=== PATIENT | male | born 1955 | race Caucasian/White ===

== ENCOUNTER 2017-09-14 19:01 | Emergency (ER) | payer MEDICAID ==
[~2017-09-14] VITALS: Ht 185.4 cm; Wt 102.3 kg
[2017-09-14 19:06] VITALS: Ht 185.4 cm; Wt 102.3 kg
[2017-09-14] MEDS ORDERED: OMEPRAZOLE20 M1 PO (19:08)
[2017-09-14] MEDS ORDERED: VOLTAREN75 MG PO (21:18)
[2017-09-14 21:37] VITALS: BP 159/95
== END 2017-09-14 21:39 | disposition home or self-care (01) ==
LOC: D.ER 19:01
DX: S83.92XA Sprain of unspecified site of left knee, initial encounter (principal); W20.8XXA Other cause of strike by thrown, projected or falling object, initial encounter; Y93.89 Activity, other specified; Y92.89 Other specified places as the place of occurrence of the external cause

== ENCOUNTER 2019-12-25 17:23 | Emergency (ER) | payer MEDICAID ==
[~2019-12-25] VITALS: Ht 185.4 cm; Wt 106.8 kg
[~2019-12-25 17:23] MED LIST: OMEPRAZOLE20 M1 PO; VOLTAREN75 MG PO
[2019-12-25 17:44] VITALS: Ht 185.4 cm; Wt 106.8 kg
[2019-12-25] MEDS ORDERED: NOVOLOG100 UNIT/1 (17:50)
[2019-12-25 18:56] LABS: BASOPHILS 0.1 % (0-2); EOSINOPHILS 0 % (0-7); HEMOGLOBIN 16.4 g/dL (13.5-17.5); IMMATURE GRANULOCYTES 0.2 % (0-5); LYMPHOCYTES 10.5 % (15-50); MCH 31.4 pg (26.0-34.0); MCHC 34.9 g/dL (31.0-37.0); MEAN PLATELET VOLUME 11.6 fL (7.4-10.4); MONOCYTES 8.1 % (2-11); NEUTROPHILS 81.1 % (40-80); RBC 5.22 10x6/uL (4.20-6.10); RDW 12.8 % (11.5-14.5); WBC 11.4 10x3/uL (4.8-10.8)
[2019-12-25 19:01] LABS: PLATELET COUNT 181 10x3/uL (130-400)
[2019-12-25 19:31] LABS: CALC OSMOLALITY 284 mosm/kg (275-300); CALCIUM 9.1 mg/dL (8.5-10.1); CARBON DIOXIDE 24.5 mmol/L (21.0-32.0); CHLORIDE - SERUM 102 mmol/L (98-107); CREATININE - SERUM 0.9 mg/dL (0.6-1.3); POTASSIUM - SERUM 3.3 mmol/L (3.5-5.1); SODIUM 138 mmol/L (136-145); UREA NITROGEN 13 mg/dL (7-18); eGFR NON AFRICAN AMERICAN 90 mL/min (90-120)
[2019-12-25 19:34] LABS: GLUCOSE 261 mg/dL (74-106)
[2019-12-25 19:36] LABS: ALBUMIN 3.6 g/dL (3.4-5.0); ALKALINE PHOSPHATASE 88 U/L (30-120); ALT (SGPT) 28 U/L (10-68); AMYLASE - SERUM 18 U/L (25-115); BILIRUBIN - TOTAL 2.04 mg/dL (0.2-1.3); MAGNESIUM - SERUM 1.6 mg/dL (1.8-2.4); PROTEIN - SERUM 7.5 g/dL (6.4-8.2); TROPONIN-I 0.027 ng/mL (0.000-0.060)
[2019-12-25 19:38] LABS: LIPASE 34 U/L (73-393)
[2019-12-25 20:31] LABS: BILIRUBIN NEGATIVE (NEGATIVE); KETONE LARGE mg/dL (NEGATIVE); NITRITE NEGATIVE (NEGATIVE); UROBILINOGEN NORMAL mg/dL (< 2)
[2019-12-25] MEDS ORDERED: ZOFRAN4 MG PO (21:22)
[2019-12-25 21:59] VITALS: BP 120/54
== END 2019-12-25 22:18 | disposition home or self-care (01) ==
LOC: D.ER 17:23
PROVIDERS: Family Medicine
DX: R10.9 Unspecified abdominal pain (principal); R11.2 Nausea with vomiting, unspecified; R53.83 Other fatigue; R53.81 Other malaise; E11.9 Type 2 diabetes mellitus without complications

== ENCOUNTER 2020-01-01 07:12 | Inpatient (IN) | payer MEDICARE ==
[~2020-01-01] VITALS: Ht 185.4 cm; Wt 106.6 kg
[2020-01-01] VITALS (8 sets, daily range): BP systolic 117–181; BP diastolic 70–87; BMI 31.0
[~2020-01-01 07:12] MED LIST changes: +NOVOLOG100 UNIT/1; +ZOFRAN4 MG PO
--- NOTE | 2020-01-01 08:26 | NUR ---
URINE SAMPLE COLLECTED AND SENT TO THE LAB.
--- NOTE | 2020-01-01 08:37 | NUR ---
PT TO RADIOLOGY VIA STRETCHER WITH STUDIO MUSICIAN.
--- NOTE | 2020-01-01 08:49 | NUR ---
PT BACK TO ROOM FROM CT WITH FRINGE KNOTTER.
[2020-01-01 08:54] LABS: CALC OSMOLALITY 273 mosm/kg (275-300); CALCIUM 8.4 mg/dL (8.5-10.1); CARBON DIOXIDE 25.4 mmol/L (21.0-32.0); CHLORIDE - SERUM 91 mmol/L (98-107); GLUCOSE 294 mg/dL (74-106); POTASSIUM - SERUM 3.3 mmol/L (3.5-5.1); SODIUM 128 mmol/L (136-145); UREA NITROGEN 29 mg/dL (7-18); eGFR NON AFRICAN AMERICAN 79 mL/min (90-120)
[2020-01-01 08:55] LABS: BILIRUBIN 1+ (NEGATIVE); KETONE LARGE mg/dL (NEGATIVE); NITRITE NEGATIVE (NEGATIVE); UROBILINOGEN 8 mg/dL (< 2)
[2020-01-01 08:56] LABS: BACTERIA FEW HPF (NONE SEEN); EPITHELIAL CELLS OCC /hpf (0-5); GRANULAR CAST RARE LPF (NONE SEEN); WHITE CELLS - URINE OCC HPF (0-1)
[2020-01-01 09:00] LABS: APTT 29.2 SECONDS (22.8-39.4); INR 1.24 (0.85-1.17); PROTIME 15.5 SECONDS (11.6-15.0)
[2020-01-01 09:01] LABS: HEMATOCRIT 43.9 % (42.0-54.0); HEMOGLOBIN 15.6 g/dL (13.5-17.5); MCH 30.6 pg (26.0-34.0); MCHC 35.5 g/dL (31.0-37.0); MCV 86.2 fL (80.0-100.0); MEAN PLATELET VOLUME 10.5 fL (7.4-10.4); PLATELET COUNT 241 10x3/uL (130-400); RBC 5.09 10x6/uL (4.20-6.10); RDW 13.2 % (11.5-14.5); WBC 25.1 10x3/uL (4.8-10.8)
[2020-01-01 09:08] LABS: ALBUMIN 1.9 g/dL (3.4-5.0); ALKALINE PHOSPHATASE 119 U/L (30-120); ALT (SGPT) 22 U/L (10-68); BILIRUBIN - TOTAL 5.08 mg/dL (0.2-1.3); CKMB 1.7 U/L (0.0-3.6); CREATINE KINASE 172 UL (21-232); MAGNESIUM - SERUM 2.6 mg/dL (1.8-2.4); PROTEIN - SERUM 6.7 g/dL (6.4-8.2); TROPONIN-I < 0.017 ng/mL (0.000-0.060)
[2020-01-01 10:39] LABS: LYMPHOCYTES 5 % (15-50); MONOCYTES 13 % (2-11); NEUTROPHILS 79 % (40-80); PLATELET ESTIMATE NORMAL
[2020-01-01 13:08] LABS: CKMB 1.5 U/L (0.0-3.6); CREATINE KINASE 129 UL (21-232); TROPONIN-I < 0.017 ng/mL (0.000-0.060)
--- NOTE | 2020-01-01 19:17 | NUR ---
PATIENT RESTING IN BED WITH NO S/S OF DISTRESS. SISTER AT BEDSIDE. STARTED PATIENT'S IV FLUIDS PER ORDERS. DENIES OTHER NEEDS. ENCOURAGED THE PATIENT TO CALL IF HE HAS NEEDS. WILL CONTINUE TO MONITOR.
--- NOTE | 2020-01-01 20:52 | NUR ---
SPOKE WITH CHAVO LAL IN REGARDS TO BENADRYL TO HELP PATIENT SLEEP PER PATIENT'S REQUEST.
[2020-01-02 00:26] LABS: CKMB 3.3 U/L (0.0-3.6); TROPONIN-I 0.033 ng/mL (0.000-0.060)
[2020-01-02 00:27] LABS: CREATINE KINASE 254 UL (21-232)
--- NOTE | 2020-01-02 01:12 | NUR ---
ENTERED THE PATIENT'S ROOM AND FOUND THE PATIENT ON THE FLOOR PARALLEL TO THE BED. I ASKED PATIENT IF HE HIT HIS HEAD AND PATIENT STATED "NO I AM TAKING A BATH AND JUST NEED TO SWIM". I ASKED THE PATIENT IF HE HIT HIS HEAD AND HE STATED "NO". I PULLED OUT AND BLOOD ON PATIENT AND FLOOR. GAVE PATIENT A COMPLETED BATH AND CHANGED LINENS. PADMINI OLIVA RN, AND I ASSISTED PATIENT BACK INTO BED. BED ALARM ON AND NON SLIP SOCKS IN PLACE.
--- NOTE | 2020-01-02 01:30 | NUR ---
RESITED PATIENT'S IV TO THE RIGHT WRIST WITH A 20G ON THE FIRST ATTEMPT
--- NOTE | 2020-01-02 01:51 | NUR ---
NOTIFIED CHAVO DEE THAT THE PATIENT WAS FOUND ON THE FLOOR WITH NO VISIBLE INJURIES.
--- NOTE | 2020-01-02 03:00 | NUR ---
TRANS PATIENT TO [facility] 2, ROOM 2135.
--- NOTE | 2020-01-02 03:01 | NUR ---
PT ARRIVED TO FLOOR VIA STRECHER FROM MED SURG WITH KARLA LYNN. PT ALERT BUT CONFUSED X4. ELIO BED ALARM IN PLACE ALL FALL PRECAUTIONS IN PLACE. PT RUNNING 110 ON TELEMETRY AT THIS TIME. BABY MONITOR PLACED IN ROOM FOR FURTHER MONITORING. VITALS STABLE. NO S/S OF DISTRESS. BED LOW CALL LIGHT WITHIN REACH. WILL CONTINUE TO MONITOR.
[2020-01-02 04:00] VITALS: BP 163/77
--- NOTE | 2020-01-02 07:20 | NUR ---
RECEIVE SHIFT REPORT. RESTING IN BED WITH EYES CLOSED. VIDEO MONITOR PLACED AT NURSE DESK. BED ALARM ON. NO SIGNS OF DISTRESS. WILL CONTINUE PLAN OF CARE AND SAFETY PRECAUTIONS.
--- NOTE | 2020-01-02 07:28 | NUR ---
SPOKE WITH SOUTH, PATIENT'S SISTER AND EMERGENCY CONTACT. EXPLAINED TO SOUTH THAT THE PATIENT HAS BEEN MOVED TO [facility] IN ROOM 2134 PENDING HIS COVID RESULTS. ALSO EXPLAINED TO THE PATIENT'S SISTER THAT THE PATIENT CAN'T HAS VISITORS UNTIL HIS RESULTS COME BACK. I ALSO NOTIFIED SOUTH THAT THE PATIENT WAS FOUND ON THE FLOOR AT [address] 0115 THIS MORNING. EXPLAINED THAT THE PATIENT STATED NOT TO CALL UNTIL MORNING AND THAT THE PATIENT HAS NO VISIBLE INJURIES.
[2020-01-02 07:33] LABS: ALBUMIN 1.5 g/dL (3.4-5.0); ALKALINE PHOSPHATASE 108 U/L (30-120); ALT (SGPT) 32 U/L (10-68); BILIRUBIN - TOTAL 5.54 mg/dL (0.2-1.3); CALC OSMOLALITY 274 mosm/kg (275-300); CALCIUM 7.4 mg/dL (8.5-10.1); CARBON DIOXIDE 26.1 mmol/L (21.0-32.0); CHLORIDE - SERUM 96 mmol/L (98-107); CREATININE - SERUM 0.9 mg/dL (0.6-1.3); GLUCOSE 214 mg/dL (74-106); PROTEIN - SERUM 5.6 g/dL (6.4-8.2); SODIUM 133 mmol/L (136-145); UREA NITROGEN 21 mg/dL (7-18); eGFR NON AFRICAN AMERICAN 90 mL/min (90-120)
[2020-01-02 07:40] LABS: BASOPHILS 0.9 % (0-2); EOSINOPHILS 0.1 % (0-7); HEMATOCRIT 38.6 % (42.0-54.0); HEMOGLOBIN 13.5 g/dL (13.5-17.5); IMMATURE GRANULOCYTES 4.2 % (0-5); LYMPHOCYTES 5.8 % (15-50); MCH 30.3 pg (26.0-34.0); MCV 86.7 fL (80.0-100.0); MONOCYTES 6.3 % (2-11); NEUTROPHILS 82.7 % (40-80); PLATELET COUNT 210 10x3/uL (130-400); RBC 4.45 10x6/uL (4.20-6.10); RDW 13.5 % (11.5-14.5); WBC 27.5 10x3/uL (4.8-10.8)
[2020-01-02 07:46] VITALS: BP 159/83
[2020-01-02 10:59] VITALS: BP 153/90
[2020-01-02 12:18] VITALS: BMI 31.0
[2020-01-02 15:25] VITALS: BP 159/84
[2020-01-02 17:46] VITALS: Ht 185.4 cm; Wt 106.6 kg
--- NOTE | 2020-01-02 19:00 | NUR ---
REPORT RECEIVED, WILL CONTINUE POC. PATIENT IS AAOX4, LYING IN BED PICKING AT DINNER TRAY. NO S/S OF DISTRESS OBSERVED, RR EVEN AND UNLABORED ON 2L O2 VIA NC. PIV TO LT FA, PATENT, INFUSING IV FLUIDS. PATIENT DENIES NEEDS AT THIS TIME. CL IN REACH, BED LOCKED AND LOWERED. COVID 19 PRECAUTIONS MAINTAINED. WILL CTM.
[2020-01-02 20:00] VITALS: BP 125/90
[2020-01-02 22:31] LABS: POTASSIUM - SERUM 3.1 mmol/L (3.5-5.1)
[2020-01-02 22:54] LABS: C-REACTIVE PROTEIN 42.5 mg/dL (0.0-0.9)
[2020-01-03] VITALS: BP 151/82
[2020-01-03 04:00] VITALS: BP 173/87
--- NOTE | 2020-01-03 04:16 | NUR ---
PATIENT SISTER SOUTH CALLED FOR UPDATE ON PATIENT CONDITION. PASSCODE VERIFIED. UPDATE GIVEN. SOUTH WANTS TO KNOW WHY HE IS NOT BEING GIVEN SOMETHING TO HELP HIM SLEEP SINCE HE HASN'T SLEPT IN 6 DAYS. INFORMED HER THAT WITH HIS CONFUSION AND AMS THAT STEERING AWAY FROM MEDICATIONS THAT WILL FURHTER AFFECT HIS MENTAL STATUS WOULD BE IDEAL. INFORMED HER THAT HE HAS RESTED SOME TONIGHT AND DIDN'T EXHIBIT ANY CONFUSION SO FAR AND HAS REMAINED IN BED AND HAS NOT PULLED HIS IV OUT HE'S DONE PREVIOUSLY. SHE STATES THAT SHE STILL DOESN'T UNDERSTAND WHY WE CAN'T JUST GIVE HIM A VALIUM. REPEATED WHAT I PREVIOUSLY STATED. SHE NOW STATES SHE UNDERSTANDS.
[2020-01-03 05:55] LABS: BASOPHILS 0.9 % (0-2); EOSINOPHILS 0.1 % (0-7); HEMATOCRIT 40.2 % (42.0-54.0); HEMOGLOBIN 14.1 g/dL (13.5-17.5); IMMATURE GRANULOCYTES 3.7 % (0-5); LYMPHOCYTES 9.8 % (15-50); MCH 30.9 pg (26.0-34.0); MCHC 35.1 g/dL (31.0-37.0); MEAN PLATELET VOLUME 10.1 fL (7.4-10.4); MONOCYTES 8.5 % (2-11); PLATELET COUNT 236 10x3/uL (130-400); RBC 4.57 10x6/uL (4.20-6.10); RDW 13.8 % (11.5-14.5)
[2020-01-03 05:58] LABS: WBC 18.9 10x3/uL (4.8-10.8)
[2020-01-03 06:01] LABS: ALBUMIN 1.4 g/dL (3.4-5.0); ALKALINE PHOSPHATASE 123 U/L (30-120); BILIRUBIN - TOTAL 5.46 mg/dL (0.2-1.3); CALCIUM 7.4 mg/dL (8.5-10.1); CARBON DIOXIDE 28.2 mmol/L (21.0-32.0); CHLORIDE - SERUM 98 mmol/L (98-107); CREATININE - SERUM 0.8 mg/dL (0.6-1.3); POTASSIUM - SERUM 3.2 mmol/L (3.5-5.1); PROTEIN - SERUM 6.1 g/dL (6.4-8.2); SODIUM 133 mmol/L (136-145); UREA NITROGEN 19 mg/dL (7-18); eGFR NON AFRICAN AMERICAN > 90 mL/min (90-120)
[2020-01-03 06:07] LABS: ALT (SGPT) 76 U/L (10-68); CALC OSMOLALITY 277 mosm/kg (275-300); GLUCOSE 287 mg/dL (74-106)
--- NOTE | 2020-01-03 07:15 | NUR ---
RECEIVE SHIFT REPORT. RESTING IN BED WITH EYES CLOSED. NO SIGNS OF DISTRESS. WILL CONTINUE PLAN OF CARE AND SAFETY PRECAUTIONS.
[2020-01-03 09:34] VITALS: BP 151/79
[2020-01-03 16:14] VITALS: BP 182/102
--- NOTE | 2020-01-03 17:59 | NUR ---
LEFT FOREARM IV OUT WHEN WALKING INTO ROOM. PATIENT STATES HE DID NOT KNOW THAT IT WAS OUT. PATIENT IS A HARD STICK. WILL PASS ON IN REPORT THAT PATIENT NEEDS IV ACCESS FOR ANTIBIOTICS.
--- NOTE | 2020-01-03 18:29 | NUR ---
TOLD PATIENT FAMILY ABOUT THE UNCONTROLLED BLOOD SUGARS AND ASKED THEM TO NOT SEND MORE PACKAGES WITH CANDY AND NON DIET DRINKS BECAUSE I CAN NOT GIVE THEM TO HIM.
--- NOTE | 2020-01-03 18:44 | NUR ---
GOT PATIENT UP WITH MINIMAL ASSIST TO SIT ON SIDE OF THE BED TO EAT HIS LUNCH AND DINNER TODAY. TOLERATED WELL. WAS ABLE TO GET HIMSELF LAID BACK DOWN IN THE BED WHEN HE FINISHED.
[2020-01-03 20:00] VITALS: BP 192/86
[2020-01-04] VITALS (7 sets, daily range): BP systolic 173–192; BP diastolic 76–92
--- NOTE | 2020-01-04 03:09 | NUR ---
I have reviewed this patient and I concur with the Shift Assessment completed by the Licensed Practical Nurse today this shift.
--- NOTE | 2020-01-04 07:12 | NUR ---
0700---Lying in bed alert, awake, denies any needs. No distress noted.
[2020-01-04 07:16] LABS: BASOPHILS 0.4 % (0-2); EOSINOPHILS 0.4 % (0-7); HEMATOCRIT 38.7 % (42.0-54.0); HEMOGLOBIN 13.3 g/dL (13.5-17.5); IMMATURE GRANULOCYTES 5.2 % (0-5); LYMPHOCYTES 12.4 % (15-50); MCH 30.2 pg (26.0-34.0); MCHC 34.4 g/dL (31.0-37.0); MEAN PLATELET VOLUME 10.2 fL (7.4-10.4); MONOCYTES 7.8 % (2-11); NEUTROPHILS 73.8 % (40-80); PLATELET COUNT 258 10x3/uL (130-400); RDW 13.7 % (11.5-14.5)
[2020-01-04 07:20] LABS: WBC 13.5 10x3/uL (4.8-10.8)
[2020-01-04 07:29] LABS: ALBUMIN 1.2 g/dL (3.4-5.0); ALKALINE PHOSPHATASE 161 U/L (30-120); ALT (SGPT) 94 U/L (10-68); BILIRUBIN - TOTAL 3.78 mg/dL (0.2-1.3); CALC OSMOLALITY 279 mosm/kg (275-300); CALCIUM 7.5 mg/dL (8.5-10.1); CARBON DIOXIDE 26.6 mmol/L (21.0-32.0); CHLORIDE - SERUM 100 mmol/L (98-107); CREATININE - SERUM 0.8 mg/dL (0.6-1.3); GLUCOSE 247 mg/dL (74-106); POTASSIUM - SERUM 3.2 mmol/L (3.5-5.1); PROTEIN - SERUM 6.2 g/dL (6.4-8.2); SODIUM 135 mmol/L (136-145); UREA NITROGEN 17 mg/dL (7-18); eGFR NON AFRICAN AMERICAN > 90 mL/min (90-120)
--- NOTE | 2020-01-04 13:42 | NUR ---
Nutrition Follow-up: Pt in droplet isolation; covid-19 pending. Chart reviewed. Diet: Diabetic PO intake: 50-75% yesterday Wt: 235# (01/01) Labs noted: Na 135, K+ 3.2, Glu 247, Ca 7.5, Alb 1.2 Meds noted: Florajen, Humalog, Protonix, KCl/NS @ 75, electrolyte protocol -Encourage PO intake and honor food preferences within diet restrictions. -Need new wt if possible; noted daily wts ordered. -RD following.
--- NOTE | 2020-01-04 14:17 | NUR ---
ATTEMPTED TO RESTART PT'S IV X'S 2 STICKS W/O SUCCESS
--- NOTE | 2020-01-04 15:28 | NUR ---
1030--SPOKE TO PT'S MOF SOUTH ARANGO--SOUTH IS VERY UPSET THAT THE PT'S COVID TEST HASN'T RESULTED YET--THIS NURSE CONTACTED PT'S DR MISTRY WHO SAID TO CONTACT VERA--THIS NURSE CONTACTED VERA AND VERA WILL CONTACT SOUTH ARANGO TO DISCUSS PT'S DX AND FURTHER CARE. THIS NURSE ALSO CONTACTED LAB STAFF AND SPOKE TO GUSTAVO--GUSTAVO STATES THAT THE COVID TEST WAS SENT TO LAB ANTOINE AND IT TAKES 48-72 HOURS FOR THE TEST TO RESULT AND THAT HER INTEGRATION ENGINEER WILL CONTACT LAB ANTOINE AND REPORT BACK TO THIS NURSE.
--- NOTE | 2020-01-04 15:31 | NUR ---
1400--THIS NURSE CONTACTED LAB STAFF AGAIN AFTER NOT SPEAKING TO THEM YET--LAB STAFF CONFIRMS AGAIN THAT THE TEST WAS SENT TO LAB ANTOINE AND THE TEST TAKES 48-72 HOURS TO RESULT. THIS INFORMATION WAS GIVEN TO SOUTH ARANGO PT'S MOF.
--- NOTE | 2020-01-04 15:43 | NUR ---
0900-LYING IN BED AWAKE, ALERT, NO NEEDS VOICED AT THIS TIME.
--- NOTE | 2020-01-04 15:45 | NUR ---
1100-LYING IN BED AWAKE, ALERT, NO NEEDS VOICED. URINAL EMPTIED.
--- NOTE | 2020-01-04 15:46 | NUR ---
1300-SITTING UP IN BED AWAKE, ALERT, RESP EVEN AND UNLABORED ON RA. NO DISTRESS NOTED.
--- NOTE | 2020-01-04 15:46 | NUR ---
1500-NO CHANGES TO REPORT, PT CONTINUES TO AWAIT IV ACCESS.
--- NOTE | 2020-01-04 16:49 | NUR ---
ASKED FROM PRIMARY NURSE TO SITE IV. AFTER X 1 ATTEMPT, I DID NOT GET IT. I ASKED THE PRIMARY NURSE TO CHECK WITH PRIMARY CARE DOCTOR FOR PICC LINE, MIDLINE, OR CVL PLACEDMENT. PATIENT BILATERAL HARMS AND HANDS ARE 3+ WITH EDEMA. STATES THAT SHE WILL.
[2020-01-04 19:08] LABS: AEROBE ID Final report (())
--- NOTE | 2020-01-04 19:53 | NUR ---
1830--ASSISTED DR SANDERS W/INSERTION OF 16CM CENTRAL LINE--PT TOLERATED ALL WELL. X-RAY ORDERED IMMEDIATELY AFTER.
--- NOTE | 2020-01-04 19:54 | NUR ---
1700--CONTACTED VERA EXPLAINED SEVERAL NURSES HAVE TRIED TO IV SITE W/O SUCCESS AND THE DIRECTOR DESIGN PRIOR TO THIS SHIFT ALSO TRIED W/O SUCCESS--V.O. TO CALL CONTENT ASSISTANT AND SEE WHAT RECOMMENDATIONS THEY HAVE FOR TO OBTAIN IV ACCESS.
--- NOTE | 2020-01-04 19:55 | NUR ---
4014--CONTACTED DR SANDERS-GENERAL SURGEON FINISH ROLLS OPERATOR-EXPLAINED THAT IV ACCESS CAN NOT BE OBTAINED AND EXTRACTOR TENDER RAW STOCK SAYS TO CONTACT GENERAL SURGEON FINISH ROLLS OPERATOR FOR CONSULT-- V.O. TO GET CENTRAL KINE KIT READY FOR CENTRAL LINE PLACEMENT.
[2020-01-05] VITALS: BP 184/86
[2020-01-05 04:00] VITALS: BP 185/96
[2020-01-05 05:05] LABS: BASOPHILS 0.3 % (0-2); EOSINOPHILS 0.2 % (0-7); HEMATOCRIT 37.5 % (42.0-54.0); HEMOGLOBIN 12.7 g/dL (13.5-17.5); IMMATURE GRANULOCYTES 6.5 % (0-5); LYMPHOCYTES 12.8 % (15-50); MCH 30.1 pg (26.0-34.0); MCHC 33.9 g/dL (31.0-37.0); MCV 88.9 fL (80.0-100.0); MONOCYTES 10.5 % (2-11); NEUTROPHILS 69.7 % (40-80); PLATELET COUNT 289 10x3/uL (130-400); RBC 4.22 10x6/uL (4.20-6.10); RDW 13.7 % (11.5-14.5); WBC 15.3 10x3/uL (4.8-10.8)
[2020-01-05 05:22] LABS: ALBUMIN 1.1 g/dL (3.4-5.0); ALKALINE PHOSPHATASE 193 U/L (30-120); ALT (SGPT) 93 U/L (10-68); BILIRUBIN - TOTAL 3.44 mg/dL (0.2-1.3); CALC OSMOLALITY 278 mosm/kg (275-300); CALCIUM 7.3 mg/dL (8.5-10.1); CARBON DIOXIDE 28.9 mmol/L (21.0-32.0); CHLORIDE - SERUM 103 mmol/L (98-107); CREATININE - SERUM 0.8 mg/dL (0.6-1.3); GLUCOSE 207 mg/dL (74-106); PROTEIN - SERUM 6.3 g/dL (6.4-8.2); SODIUM 136 mmol/L (136-145); UREA NITROGEN 14 mg/dL (7-18); eGFR NON AFRICAN AMERICAN > 90 mL/min (90-120)
--- NOTE | 2020-01-05 06:53 | NUR ---
PT WITH A BLOOD SUGAR OF 238.PT GIVEN 12 UNITS OF HUMALOG.PT GIVEN MERREM 1 GM ivpb.
--- NOTE | 2020-01-05 06:54 | NUR ---
REPORT GIVEN.SAFETY MEASURES ARE IN PLACE.CALL AARON IN REACH.NO DISTRESS NOTED.
[2020-01-05 08:31] VITALS: BP 154/97
[2020-01-05 10:13] LABS: HEPATITIS C ANTIBODY <0.1 S/CO RAT (0.0-0.9)
--- NOTE | 2020-01-05 13:24 | NUR ---
50758--QQUPE IN BED W/EYES CLOSED, RESP EVEN AND UNLABORED ON RA--NO DISTRESS NOTED. 0900--AM MEDS ADMINISTERED W/O DIFFICULTY-PT DENIES ANY NEEDS. 1140--LUNCH SERVED-PT REQUEST A SHOWER--WILL SHOWER AFTER LUNCH. 1300--URINAL GIVEN TO PT/REQUEST-GOWN PLACED ON PT FOR COMFORT-PT IS COVID NEG AND AWAITS A DIFFERENT ROOM.
--- NOTE | 2020-01-05 13:53 | NUR ---
CONTACTED JUDE GUZMAN AND GAVE REPORT TO FREDI AT THIS TIME--PT IS IN THE SHOWER AND WILL BE MOVED TO ROOM 6515 AFTER HIS SHOWER.
--- NOTE | 2020-01-05 14:32 | NUR ---
1425--TF PT TO ROOM 2218 ON MED SURGE IN CARE OF FREDI.
--- NOTE | 2020-01-05 14:33 | NUR ---
PATIENT RECEIVED TO RROM AND ASSISSTED X2 TO TRANSFER TO BED. ORIENTED TO ROMM AND SURROUNDINGS WITH FAMILY PRESENT. ENCOURGAED TO USE CALL LIGHT FOR ASSSIT.
[2020-01-05 17:24] VITALS: BP 153/77
--- NOTE | 2020-01-05 17:56 | OP ---
PATIENT NAME: MARIANA ARANGO MEDICAL RECORD: [id number] :51 LOCATION:D.MS [id number] ADMISSION DATE:01/01/20 SURGEON: FAB SANDERS MD DATE OF OPERATION: 01/04/2020 PREOPERATIVE DIAGNOSIS: Cellulitis, in need of IV access for IV medications. POSTOPERATIVE DIAGNOSIS: Cellulitis, in need of IV access for IV medications. PROCEDURE: Insertion of right internal jugular triple lumen central venous catheter. SURGEON: Fab Sanders MD PRIVATE CHEF: None. BLOOD LOSS: Minimal. ANESTHESIA: Local. COMPLICATIONS: None. The risks, possible complications and alternatives to the procedure were explained to the patient. He elects to proceed. OPERATIVE COURSE: The patient was seen in his room. He was positioned in the Trendelenburg position. The right neck was sterilely prepped and draped. A local anesthetic was used to infiltrate the skin and subcutaneous tissues at the base of the right neck. The right internal jugular vein was percutaneously accessed in an antegrade fashion. A guidewire was passed easily. A small skin patricia was accomplished. A vessel dilator was used to dilate a subcutaneous tract. A 16-cm triple lumen central venous catheter was inserted to the hub. It was sutured in place times 2. All lumens flushed easily and aspirated dark, nonpulsatile blood. A sterile dressing was applied. A stat portable chest x-ray is pending. TRANSINT:[id number] Voice Confirmation ID: [id number] DOCUMENT ID: [id number] FAB SANDERS MD at 1756 CC: [id number] DICTATION DATE: 01/05/2044 MANAGER ER: 01/05/20 1352 ADM IN [facility] [address] [id number]
--- NOTE | 2020-01-05 19:00 | NUR ---
BEDSIDE REPORT RECEIVED AND CARE OF PT ASSUMED. PT LYING IN LOW MURPHY'S POSITION VISITING WITH HIS SISTER. RIGHT CVL PATENT WITH NS W/ 20 KCL INFUSING AT 75 ML/HR. TELEMETRY IN PLACE AND READING 103 ST W/ BBB AT THIS ASSESSMENT. WILL MONITOR FOR NEEDS.
[2020-01-05 20:24] VITALS: BP 103/64
--- NOTE | 2020-01-05 21:51 | NUR ---
HS MEDICATIONS GIVEN TO INCLUDE ATIVAN PO PER REQUEST FOR SLEEP. WILL MONITOR FOR EFFECTIVENESS.
[2020-01-06 01:10] VITALS: BP 169/78
--- NOTE | 2020-01-06 05:00 | NUR ---
COLT BLOOD FROM CENTRAL LINE FOR AM LABS AND DELIVERED TO OFFSET ASSISTANT PRESS OPERATOR.
[2020-01-06 05:12] VITALS: BP 134/64
[2020-01-06 06:17] LABS: ALBUMIN 1.3 g/dL (3.4-5.0); ALKALINE PHOSPHATASE 222 U/L (30-120); ALT (SGPT) 80 U/L (10-68); BILIRUBIN - TOTAL 2.81 mg/dL (0.2-1.3); CALC OSMOLALITY 275 mosm/kg (275-300); CALCIUM 7.4 mg/dL (8.5-10.1); CARBON DIOXIDE 27.1 mmol/L (21.0-32.0); CHLORIDE - SERUM 103 mmol/L (98-107); CREATININE - SERUM 0.8 mg/dL (0.6-1.3); GLUCOSE 187 mg/dL (74-106); POTASSIUM - SERUM 3.9 mmol/L (3.5-5.1); PROTEIN - SERUM 6.7 g/dL (6.4-8.2); SODIUM 135 mmol/L (136-145); UREA NITROGEN 14 mg/dL (7-18); eGFR NON AFRICAN AMERICAN > 90 mL/min (90-120)
[2020-01-06 07:51] LABS: BASOPHILS 0.3 % (0-2); EOSINOPHILS 0.5 % (0-7); HEMATOCRIT 37.7 % (42.0-54.0); HEMOGLOBIN 12.8 g/dL (13.5-17.5); IMMATURE GRANULOCYTES 7.6 % (0-5); MCH 30.6 pg (26.0-34.0); MCV 90.2 fL (80.0-100.0); MONOCYTES 9.9 % (2-11); NEUTROPHILS 66.7 % (40-80); PLATELET COUNT 306 10x3/uL (130-400); RBC 4.18 10x6/uL (4.20-6.10); RDW 13.9 % (11.5-14.5); WBC 16.7 10x3/uL (4.8-10.8)
[2020-01-06 08:00] VITALS: BP 169/85
--- NOTE | 2020-01-06 08:00 | NUR ---
ASSESSMENT PER FLOW SHEET. PATIENT IS WITHOUT DISTRESS.CALL LIGHT IN REACH.FAMILY AT BEDSIDE
[2020-01-06 12:14] VITALS: BP 159/81
[2020-01-06 13:06] LABS: BILIRUBIN NEGATIVE (NEGATIVE); KETONE SMALL mg/dL (NEGATIVE); NITRITE NEGATIVE (NEGATIVE); UROBILINOGEN NORMAL mg/dL (< 2)
[2020-01-06 13:49] LABS: INR 1.21 (0.85-1.17); PROTIME 15.3 SECONDS (11.6-15.0)
[2020-01-06 17:08] LABS: AEROBE ID Final report (())
--- NOTE | 2020-01-06 17:38 | NUR ---
HAS HAD 3 LARGE BROWN COLORED STOOLS. REMAINS NPO FOR PIPIDA.CONT PLAN OF CARE
--- NOTE | 2020-01-06 18:49 | NUR ---
TO JAREDIDA SCAN VIA BED
--- NOTE | 2020-01-06 19:00 | NUR ---
BEDSIDE REPORT RECEIVED AND CARE OF PT ASSUMED. PT LEFT FOR PIPADA SCAN AT 1847. SISTER IS IN ROOM.
--- NOTE | 2020-01-06 20:13 | NUR ---
CALLED TO RADIOLOGY TO ADMINISTER 2MG MORPHINE PER ORDER FROM DR CALLE TO FACILITATE PIPADA SCAN.
--- NOTE | 2020-01-06 20:43 | NUR ---
PT ARRIVED BACK ON UNIT VIA BED. ALL BEDPADS CHANGED. FRESH WATER PROVIDED.
--- NOTE | 2020-01-06 20:50 | NUR ---
CALLED MEDICAL POLICY SPECIALIST PER PT'S SISTER'S REQUEST, SHE WANTS TO SPEAK TO HER ABOUT KIERRA FROM RADIOLOGY.
--- NOTE | 2020-01-06 21:21 | NUR ---
HS MEDICATIONS GIVEN. FABS 287 THIS CHECK REQUIRING COVERAGE WITH 16 UNITS OF INSULIN PER SLIDING SCALE.
[2020-01-06 21:35] VITALS: BP 176/81
[2020-01-07 01:23] VITALS: BP 154/64
[2020-01-07 04:50] LABS: BASOPHILS 0.2 % (0-2); EOSINOPHILS 0.5 % (0-7); HEMATOCRIT 34.1 % (42.0-54.0); HEMOGLOBIN 11.5 g/dL (13.5-17.5); IMMATURE GRANULOCYTES 6.1 % (0-5); LYMPHOCYTES 12.6 % (15-50); MCH 30.5 pg (26.0-34.0); MCHC 33.7 g/dL (31.0-37.0); MCV 90.5 fL (80.0-100.0); MEAN PLATELET VOLUME 9.6 fL (7.4-10.4); MONOCYTES 9.1 % (2-11); NEUTROPHILS 71.5 % (40-80); PLATELET COUNT 289 10x3/uL (130-400); RBC 3.77 10x6/uL (4.20-6.10); RDW 13.8 % (11.5-14.5); WBC 15.6 10x3/uL (4.8-10.8)
[2020-01-07 05:04] LABS: ALBUMIN 1.2 g/dL (3.4-5.0); ALKALINE PHOSPHATASE 229 U/L (30-120); ALT (SGPT) 66 U/L (10-68); BILIRUBIN - TOTAL 2.27 mg/dL (0.2-1.3); CALC OSMOLALITY 277 mosm/kg (275-300); CALCIUM 7.4 mg/dL (8.5-10.1); CARBON DIOXIDE 30.3 mmol/L (21.0-32.0); CHLORIDE - SERUM 103 mmol/L (98-107); CREATININE - SERUM 0.8 mg/dL (0.6-1.3); GLUCOSE 260 mg/dL (74-106); PROTEIN - SERUM 6.4 g/dL (6.4-8.2); SODIUM 134 mmol/L (136-145); UREA NITROGEN 14 mg/dL (7-18); eGFR NON AFRICAN AMERICAN > 90 mL/min (90-120)
[2020-01-07 05:31] VITALS: BP 166/77
--- NOTE | 2020-01-07 08:00 | NUR ---
ASSESSMENT PER FLOW SHEET. PATIENT IS WITHOUT DISTRESS.CALL LIGHT IN REACH. FAMILY AT SIDE.
[2020-01-07 08:36] VITALS: BP 161/85
--- NOTE | 2020-01-07 10:00 | NUR ---
WOUND VAC CHANGED,SOILED AND FALLING OFF.
[2020-01-07 16:22] VITALS: BP 150/72
--- NOTE | 2020-01-07 18:14 | NUR ---
BATH AND BED CHANGE
--- NOTE | 2020-01-07 19:00 | NUR ---
BEDSIDE REPORT RECEIVED AND CARE OF PT ASSUMED. PT LYING IN LOW MURPHY'S POSITION WITH EYES CLOSED. RIGHT IJ PATENT WITH NS W/ 20 KCL INFUSING AT 75 ML/HR. TELEMETRY IN PLACE AND READING SR AT THIS ASSESSMENT. WILL MONITOR FOR NEEDS.
[2020-01-07 21:08] VITALS: BP 157/79
--- NOTE | 2020-01-07 21:22 | NUR ---
HS MEDICATIONS GIVEN. FSBS 318 THIS CHECK REQUIRING COVERAGE WITH 12 UNITS OF INSULIN PER SLIDING SCALE. GAVE MILK AND RICCARDO CRACKERS FOR HS SNACK. WILL MONITOR.
[2020-01-08 01:22] VITALS: BP 178/85
[2020-01-08 05:23] LABS: BASOPHILS 0.1 % (0-2); EOSINOPHILS 0.2 % (0-7); HEMATOCRIT 34.6 % (42.0-54.0); HEMOGLOBIN 11.3 g/dL (13.5-17.5); IMMATURE GRANULOCYTES 3.2 % (0-5); LYMPHOCYTES 12.6 % (15-50); MCH 29.9 pg (26.0-34.0); MCHC 32.7 g/dL (31.0-37.0); MCV 91.5 fL (80.0-100.0); MEAN PLATELET VOLUME 9.7 fL (7.4-10.4); MONOCYTES 8.4 % (2-11); NEUTROPHILS 75.5 % (40-80); RBC 3.78 10x6/uL (4.20-6.10); RDW 14.2 % (11.5-14.5); WBC 14.9 10x3/uL (4.8-10.8)
[2020-01-08 05:24] LABS: PLATELET COUNT 348 10x3/uL (130-400)
[2020-01-08 05:30] VITALS: BP 165/78
[2020-01-08 05:36] LABS: ALBUMIN 1.2 g/dL (3.4-5.0); ALKALINE PHOSPHATASE 223 U/L (30-120); ALT (SGPT) 61 U/L (10-68); BILIRUBIN - TOTAL 1.98 mg/dL (0.2-1.3); CALC OSMOLALITY 277 mosm/kg (275-300); CALCIUM 7.9 mg/dL (8.5-10.1); CARBON DIOXIDE 25.9 mmol/L (21.0-32.0); CHLORIDE - SERUM 101 mmol/L (98-107); CREATININE - SERUM 0.9 mg/dL (0.6-1.3); GLUCOSE 351 mg/dL (74-106); POTASSIUM - SERUM 4.4 mmol/L (3.5-5.1); PROTEIN - SERUM 6.7 g/dL (6.4-8.2); SODIUM 131 mmol/L (136-145); UREA NITROGEN 15 mg/dL (7-18); eGFR NON AFRICAN AMERICAN 90 mL/min (90-120)
--- NOTE | 2020-01-08 09:00 | NUR ---
ASSESSMENT PER FLOW SHEET. PATIENT WITHOUT DISTRESS. FAMILY AT BEDSIDE
[2020-01-08 09:05] VITALS: BP 149/78
--- NOTE | 2020-01-08 10:36 | MORECARE ---
CASE MANAGEMENT DISCHARGE SUMMARY PATIENT: MARIANA ARANGO UNIT: [id number] ADM DATE: 01/01/20 AGE: 64 : 53 SEX: M ROOM/BED: D.2218 AUTHOR: SHANNON MORTON PHYSICIAN: REFERRING PHYSICIAN: SUSAN MISTRY MD DATE OF SERVICE: 01/08/20 Discharge Plan Patient Name: MARIANA ARANGO [facility] : 1955 Planned Disposition: Inpatient Rehab Anticipated Discharge Date: Discharge Date: Expected LOS: Initial Reviewer: [email or web address] Initial Review Date: 01/01/2020 Generated: 01/08/20 11:35 am DCPIA - Discharge Planning Initial Assessment Updated by [email or web address]: Marii Decker on 01/08/20 10:32 am * Is the patient Alert and Oriented? Yes * How many steps to enter\exit or inside your home? * PCP DR SAENZ * Pharmacy [facility] * Preadmission Environment Home Alone * ADLs Independent * Equipment Cane Glucometer * List name and contact numbers for known caregivers / representatives who currently or will assist patient after discharge: NELL CLINTON [phone] MICAELA MORALES (COUSIN) * Verbal permission to speak to the caregivers and representatives has been obtained from the patient. Yes * Community resources currently utilized None * Additional services required to return to the preadmission environment? Yes * Can the patient safely return to the preadmission environment? No * Has this patient been hospitalized within the prior 30 days at any hospital? No Patient Name: MARIANA ARANGO Page [id number] at 1036 All edits/amendments must be made on the electronic document DICTATION DATE: 01/08/20 1035 CLIENT SERVER DEVELOPER: KAYLEIGH 01/08/20 1035 RPT#: [id number] DC DATE: STATUS: ADM IN [facility] [address] [place] [address] END OF REPORT
--- NOTE | 2020-01-08 10:42 | MORECARE ---
CASE MANAGEMENT DISCHARGE SUMMARY PATIENT: MARIANA ARANGO UNIT: [id number] ADM DATE: 01/01/20 AGE: 64 : 53 SEX: M ROOM/BED: D.2218 AUTHOR: SHANNON MORTON PHYSICIAN: REFERRING PHYSICIAN: SUSAN MISTRY MD DATE OF SERVICE: 01/08/20 Discharge Plan Patient Name: MARIANA ARANGO Facility: [facility]:[place] : 1955 Planned Disposition: Inpatient Rehab Anticipated Discharge Date: Discharge Date: Expected LOS: Initial Reviewer: [email or web address] Initial Review Date: 01/01/2020 Generated: 01/08/20 11:42 am Comments DCP- Discharge Planning Updated by [email or web address]: Marii Decker on 01/08/20 9:[address] Patient Name: MARIANA ARANGO Admission Status: ER Accout number: [id number] Admission Date: 01-01-2020 : 1955 Admission Diagnosis:CELLULITIS OF UNSPECIFIED PART OF LIMB Attending: SUSAN OCONNOR Current LOS: 7 Anticipated DC Date: Planned Disposition: Inpatient Rehab Primary Insurance: MEDICARE A & B Discharge Planning Comments: CM met with patient & his family to complete initial dc planning assessment. CM educated patient on the CM role and verbal consent given by patient to complete assessment. Patient lives at home by himself where he is independent with his care. At discharge patient plans to return home when he is able to and feels this is a safe discharge. CM discussed availability of home health, rehab services, and medical equipment. Prior to coming to the hospital he was independent with care. He used a cane at times and a glucometer. His cousin, Micaela stated that she would talk to his sister about the different in patient rehabs in [place] and get back with me. We talked about inpatient rehabs. ANITA signed for inpatient rehab. Patient states that he is NOT feeling any better at this time. He did appear to be hurting and did not look like he felt well. Patient denied known discharge needs at this time. CM will continue to follow and will assist as needed with dc plans/needs. Director Of Counseling: Marii Decker DCPIA - Discharge Planning Initial Assessment Updated by [email or web address]: Marii Decker on 01/08/20 10:32 am * Is the patient Alert and Oriented? Yes * How many steps to enter\exit or inside your home? * PCP DR SAENZ * Pharmacy [facility] [place] * Preadmission Environment Home Alone * ADLs Independent * Equipment Cane Glucometer * List name and contact numbers for known caregivers / representatives who currently or will assist patient after discharge: NELL ALONZO [phone] MICAELA MORALES (COUSIN) * Verbal permission to speak to the caregivers and representatives has been obtained from the patient. Yes * Community resources currently utilized None * Additional services required to return to the preadmission environment? Yes * Can the patient safely return to the preadmission environment? No * Has this patient been hospitalized within the prior 30 days at any hospital? No Coverage Notice Reviewer: [id number] - Marii Decker Notice Issued Date-Time: 01/08/2020 10:05 Notice Type: Patient Choice Letter Notice Delivered To: Patient Relationship to Patient: White Lead Grinder Name: Delivery Method: HAND - Hand Delivered Ragini Days: Prior Verbal Notification: Recipient Understood Notice: Yes Recipient Signature: Yes Med Rec Note Co-signed by Attending: Coverage Notice Comment: inpatient rehab unsure which one to use, he will let us know Last DP export: 01/08/20 9:36 a Patient Name: MARIANA ARANGO Page [phone] at 1042 All edits/amendments must be made on the electronic document DICTATION DATE: 01/08/20 104 MACHINE SKIVER: KAYLEIGH 01/08/20 1042 RPT#: [id number] DC DATE: STATUS: ADM IN [facility] [address] [place] [address] END OF REPORT
--- NOTE | 2020-01-08 12:31 | NUR ---
CVL DRESSING CHANGE, GROUNDS/MAINTENANCE SPECIALIST USED.
[2020-01-08 12:47] VITALS: BP 131/72
[2020-01-08 13:25] LABS: ERYTHROCYTE SEDIMENTATION RATE 73 mm/hr (0-20)
[2020-01-08 14:05] LABS: CKMB 1.3 U/L (0.0-3.6); CREATINE KINASE 87 UL (21-232); TROPONIN-I < 0.017 ng/mL (0.000-0.060)
--- NOTE | 2020-01-08 14:26 | NUR ---
Nutrition follow-up: Diet: ADA consistent CHO PO Intake 75% average at most meals Labs reviewed; Glucose elevated; pt on Solumedrol Lantus added BID Wt: 234# PO intake good at this time RDN following.
[2020-01-08 15:00] VITALS: BP 152/75
[2020-01-08 18:58] LABS: CKMB 1.3 U/L (0.0-3.6); CREATINE KINASE 87 UL (21-232); TROPONIN-I < 0.017 ng/mL (0.000-0.060)
--- NOTE | 2020-01-08 20:00 | NUR ---
PT SITTING UP IN BED WITHOUT DISTRESS, AOX4. RIGHT IJ INFUSING NS W/ 20K @ 100. BILAT ARMS AND LEGS ELEVATED ON PILLOWS, RED AND SWOLLEN. USING URINAL NEEDED. PROVIDED WATER. DENIES OTHER NEEDS AT THIS TIME. CL IN REACH, WILL CTM
[2020-01-08 20:37] VITALS: BP 148/72
--- NOTE | 2020-01-08 21:00 | NUR ---
FSBS 347, GAVE INSULIN ORDERED, SEE MAR. DENIES OTHER NEEDS, WILL CTM
--- NOTE | 2020-01-08 23:30 | NUR ---
PROVIDED PT WITH APPLE JUICE, DENIES OTHER NEEDS
[2020-01-08 23:58] LABS: CKMB 1.2 U/L (0.0-3.6); CREATINE KINASE 88 UL (21-232); TROPONIN-I 0.031 ng/mL (0.000-0.060)
[2020-01-09 00:29] VITALS: BP 144/77
[2020-01-09 04:00] VITALS: BP 146/74
[2020-01-09 06:44] LABS: BASOPHILS 0.1 % (0-2); EOSINOPHILS 0 % (0-7); HEMATOCRIT 33.7 % (42.0-54.0); IMMATURE GRANULOCYTES 0.9 % (0-5); MCH 29.9 pg (26.0-34.0); MCHC 32.6 g/dL (31.0-37.0); MCV 91.6 fL (80.0-100.0); MEAN PLATELET VOLUME 10.1 fL (7.4-10.4); PLATELET COUNT 400 10x3/uL (130-400); RBC 3.68 10x6/uL (4.20-6.10); RDW 14.1 % (11.5-14.5); WBC 12.2 10x3/uL (4.8-10.8)
[2020-01-09 07:08] LABS: ALBUMIN 1.2 g/dL (3.4-5.0); ALKALINE PHOSPHATASE 201 U/L (30-120); ALT (SGPT) 58 U/L (10-68); BILIRUBIN - TOTAL 1.19 mg/dL (0.2-1.3); CALC OSMOLALITY 281 mosm/kg (275-300); CALCIUM 8.2 mg/dL (8.5-10.1); CHLORIDE - SERUM 101 mmol/L (98-107); CREATININE - SERUM 0.7 mg/dL (0.6-1.3); GLUCOSE 369 mg/dL (74-106); PROTEIN - SERUM 6.7 g/dL (6.4-8.2); SODIUM 133 mmol/L (136-145); UREA NITROGEN 16 mg/dL (7-18); eGFR NON AFRICAN AMERICAN > 90 mL/min (90-120)
--- NOTE | 2020-01-09 07:25 | NUR ---
PT LAYING ON BACK. A/O. NO NEEDS AT THIS TIME. WCTM
[2020-01-09 08:23] VITALS: BP 154/80
--- NOTE | 2020-01-09 08:59 | EC ---
PATIENT:MARIANA ARANGO DATE OF SERVICE: 01/01/20 SEX: M MEDICAL RECORD: [id number] DATE OF : [birth year] LOCATION:D.MS [facility] AGE OF PATIENT: 64 ADMISSION DATE: 01/01/20 REFERRING PHYSICIAN: INTERPRETING PHYSICIAN: DEBBY LACEY MD ECHOCARDIOGRAM REPORT ECHO CHARGES 4 ECHO COMPLETE Date: 01/05/20 CLINICAL DIAGNOSIS: R/O VEGITATION ECHOCARDIOGRAPHIC MEASUREMENTS (adult normal given) AC root (d.<3.7cm) 3.1 cm LV Septum d (<1.2 cm> 0.7 cm Valve Excursion 1.9 cm LV Septum (systole) 0.8 cm Left Atria (s.<4.0cm> 3.9 cm LVPW d(<1.2cm) 0.7 cm RV (d.<2.3cm) 3.3 cm LVPW (sytole) 0.9 cm LV diastole(<5.6CM) 5.0 cm MV E-F(>70mm/sec) cm LV systole 3.9 cm LVOT Diameter 1.5 cm MV exc.(>10mm) 2.5 cm Est.ejection fraction (50-75%) % DOPPLER: LVIT cm/sec A 157 cm/sec E 100 cm/sec LA cm/sec RVSP 23 mmHg LVOT 148 cm/sec AOP1/2T m/s Asc. Ao 196 cm/sec RVOT 144 cm/sec RA cm/sec PA 91 cm/sec AV Gradient Peak 15.3 mmHg AV Mean 7.7 mmHg AV Area 1.4 cm MV Gradient Peak 9.6 mmHg MV Mean 6.3 mmHg MV Area cm COMMENTS: Crime Prevention Worker: Roberto DE LEON Glazier Stained Glass: 3 Dr. Gastelum TAPE# PACS Pericardial Effusion Y DATE OF SERVICE: Adequate 2D, color-flow imaging, spectral Doppler, and M-Mode No LVH. LV internal dimensions are normal. Wall motion is normal. EF is greater than or equal to 55%. Aortic valve is tricuspid. No evidence of stenosis by Doppler interrogation. Left atrium is normal. Mitral valve shows no prolapse. Trivial MR. Right-sided chambers are grossly normal. Trivial TR. No evidence of vegetation seen in all 4 cardiac valves. ECHOCARDIOGRAM REPORT [id number] MARIANA ARANGO TRANSINT:[id number] Voice Confirmation ID: [id number] DOCUMENT ID: [id number] DEBBY LACEY MD at 0859 CC: [id number] DICTATION DATE: 01/06/20917 MICROFILM CAMERA OPERATOR: 01/06/20 1142 ADM IN [facility] [address] [place] [address]
[2020-01-09 11:54] VITALS: BP 126/58
--- NOTE | 2020-01-09 14:48 | NUR ---
Pt is up with PT/OT. Walking with walker. The tops of both feet are red and swollen and the right hand. No open or chronic wounds noted.
--- NOTE | 2020-01-09 15:37 | NUR ---
OT NOTE: PT DOING MUCH BETTER TODAY. REPORTS THAT HES HAVING LESS APIN AND INCREASED FUNCTIONAL USE OF HANDS. PT WAS ABLE TO EAT FINGER FOODS WITH SET UP AND ALSO ABLE TO EAT EGGS WITH FORK.. UNABLE TO OPEN PKGS AND DIFFICULTY USING UTENSILS FOR OTHER CONSISTENCIES OF FOOD. MAX ASSIST TO IRA SOCKS. B FEET REMAIN SWOLLEN AND RED ON DORSAL SURFACE, BUT NO PAIN REPORTED TODAY WHEN APPLYING SOCKS. BED MOB WITH MIN/MOD ASSIST; SIT TO STAND WITH MIN/MOD ASSIST AND USE OF WALKER..PT/OT ASSISTED PT WITH AMB INTO HALLWAY APPROX 60+ FT. CUES REQUIRED FOR SAFETY WITH IN ROOM AMBULATION. TRANSFERRED TO CHAIR WITH MIN ASSIST; TOLERATED SITTING UP IN CHAIR GREATER THAN 2 HRS. PROVIDED PT WITH WALKER.. EDUCATED STAFF ON AMOUNT OF ASSIST REQUIRED FOR TRANSFERS. MARY ROSA, OTR/L [id number]
[2020-01-09 21:26] VITALS: BP 140/68
--- NOTE | 2020-01-09 21:30 | NUR ---
PT SITTING UP IN BED WITHOUT DISTRESS, AOX4. BILAT ARM AND LEGS RED AND SWOLLEN, PROPPED ON PILLOWS. PT STATES HE IS FEELING BETTER TODAY AND HANDS ARE LESS SWOLLEN. FSBS 415, COVERAGE PER SS AND LANTUS GIVEN. RIGHT IJ INFUSING NS WITH 20K @ 100. DENIES PAIN OR NEEDS. CL IN REACH, WILL CTM
[2020-01-10] VITALS: BP 135/75
--- NOTE | 2020-01-10 01:00 | NUR ---
PT LYING IN BED RESTING WITHOUT DISTRESS, WILL CTM
[2020-01-10 04:00] VITALS: BP 155/75
[2020-01-10 06:53] LABS: BASOPHILS 0 % (0-2); EOSINOPHILS 0 % (0-7); HEMATOCRIT 32.3 % (42.0-54.0); HEMOGLOBIN 10.5 g/dL (13.5-17.5); IMMATURE GRANULOCYTES 0.7 % (0-5); LYMPHOCYTES 11.6 % (15-50); MCHC 32.5 g/dL (31.0-37.0); MCV 92.3 fL (80.0-100.0); MEAN PLATELET VOLUME 9.6 fL (7.4-10.4); MONOCYTES 4.6 % (2-11); NEUTROPHILS 83.1 % (40-80); PLATELET COUNT 422 10x3/uL (130-400); RDW 14.3 % (11.5-14.5); WBC 13.6 10x3/uL (4.8-10.8)
[2020-01-10 07:04] LABS: ALBUMIN 1.4 g/dL (3.4-5.0); ALKALINE PHOSPHATASE 169 U/L (30-120); ALT (SGPT) 62 U/L (10-68); BILIRUBIN - TOTAL 0.96 mg/dL (0.2-1.3); CALC OSMOLALITY 290 mosm/kg (275-300); CALCIUM 7.9 mg/dL (8.5-10.1); CARBON DIOXIDE 27.9 mmol/L (21.0-32.0); CHLORIDE - SERUM 104 mmol/L (98-107); CREATININE - SERUM 0.6 mg/dL (0.6-1.3); GLUCOSE 344 mg/dL (74-106); POTASSIUM - SERUM 4.3 mmol/L (3.5-5.1); PROTEIN - SERUM 6.4 g/dL (6.4-8.2); SODIUM 137 mmol/L (136-145); eGFR NON AFRICAN AMERICAN > 90 mL/min (90-120)
--- NOTE | 2020-01-10 07:10 | NUR ---
A&O RESTING IN BED WITH EYES OPEN. NO C/O PAIN. NO S/S OF ACUTE DISTRESS NOTED. DENIES ANY NEEDS AT THIS TIME. CALL LIGHT IN REACH. FAMILY AT BEDSIDE. WILL CONTINUE TO MONITOR.
[2020-01-10 07:13] LABS: UREA NITROGEN 22 mg/dL (7-18)
[2020-01-10 08:53] VITALS: BP 122/77
[2020-01-10 09:13] LABS: ANA REFLEX - DIRECT Negative (Negative)
--- NOTE | 2020-01-10 11:30 | NUR ---
TOOK OFF DRESSING TO RIGHT IJ. APPLIED NEW CVL DRESSING TO RIGHT IJ VIA STERILE TECHNIQUE. CHANGED OUT LUMENS WELL.
[2020-01-10 12:01] VITALS: BP 150/78
--- NOTE | 2020-01-10 12:09 | MORECARE ---
CASE MANAGEMENT DISCHARGE SUMMARY PATIENT: MARIANA ARANGO UNIT: [id number] ADM DATE: 01/01/20 AGE: 64 : 51 SEX: M ROOM/BED: D.2218 AUTHOR: SHANNON MORTON PHYSICIAN: REFERRING PHYSICIAN: SUSAN MISTRY MD DATE OF SERVICE: 01/10/20 Discharge Plan Patient Name: MARIANA ARANGO Facility: [facility]:[place] : 1955 Planned Disposition: Inpatient Rehab Anticipated Discharge Date: Discharge Date: Expected LOS: Initial Reviewer: [email or web address] Initial Review Date: 01/01/2020 Generated: 01/10/20 1:09 pm Comments DCP- Discharge Planning Updated by [email or web address]: Marii Decker on 01/08/20 9:[address] Patient Name: MARIANA ARANGO Admission Status: ER Accout number: [id number] Admission Date: 01-01-2020 : 1955 Admission Diagnosis:CELLULITIS OF UNSPECIFIED PART OF LIMB Attending: SUSAN OCONNOR Current LOS: 7 Anticipated DC Date: Planned Disposition: Inpatient Rehab Primary Insurance: MEDICARE A & B Discharge Planning Comments: CM met with patient & his family to complete initial dc planning assessment. CM educated patient on the CM role and verbal consent given by patient to complete assessment. Patient lives at home by himself where he is independent with his care. At discharge patient plans to return home when he is able to and feels this is a safe discharge. CM discussed availability of home health, rehab services, and medical equipment. Prior to coming to the hospital he was independent with care. He used a cane at times and a glucometer. His cousin, Micaela stated that she would talk to his sister about the different in patient rehabs in [place] and get back with me. We talked about inpatient rehabs. ANITA signed for inpatient rehab. Patient states that he is NOT feeling any better at this time. He did appear to be hurting and did not look like he felt well. Patient denied known discharge needs at this time. CM will continue to follow and will assist as needed with dc plans/needs. Boring Machine Operator Helper: Marii Decker DCPIA - Discharge Planning Initial Assessment Updated by [id number]: Marii Decker on 01/08/20 10:32 am * Is the patient Alert and Oriented? Yes * How many steps to enter\exit or inside your home? * PCP DR SAENZ * Pharmacy [facility] [address] * Preadmission Environment Home Alone * ADLs Independent * Equipment Cane Glucometer * List name and contact numbers for known caregivers / representatives who currently or will assist patient after discharge: NELL ALONZO [phone] MICAELA MORALES (COUSIN) * Verbal permission to speak to the caregivers and representatives has been obtained from the patient. Yes * Community resources currently utilized None * Additional services required to return to the preadmission environment? Yes * Can the patient safely return to the preadmission environment? No * Has this patient been hospitalized within the prior 30 days at any hospital? No Coverage Notice Reviewer: [id number] - Marii Decker Notice Issued Date-Time: 01/08/2020 10:05 Notice Type: Patient Choice Letter Notice Delivered To: Patient Relationship to Patient: Animal Bounty Hunter Name: Delivery Method: HAND - Hand Delivered Ragini Days: Prior Verbal Notification: Recipient Understood Notice: Yes Recipient Signature: Yes Med Rec Note Co-signed by Attending: Coverage Notice Comment: inpatient rehab unsure which one to use, he will let us know Last DP export: 01/08/20 9:42 a Patient Name: MARIANA ARANGO Page [id number] at 1209 All edits/amendments must be made on the electronic document DICTATION DATE: 01/10/201208 BOW MAKER GIFT WRAPPING: KAYLEIGH 01/10/20 120 RPT#: [id number] DC DATE: STATUS: ADM IN [facility] [address] [place] [address] END OF REPORT
--- NOTE | 2020-01-10 12:24 | MORECARE ---
CASE MANAGEMENT DISCHARGE SUMMARY PATIENT: MARIANA ARANGO UNIT: [id number] ADM DATE: 01/01/20 AGE: 64 : 53 SEX: M ROOM/BED: D.2218 AUTHOR: SELENEDOC PHYSICIAN: REFERRING PHYSICIAN: SUSAN MISTRY MD DATE OF SERVICE: 01/10/20 Discharge Plan Patient Name: MARIANA ARANGO Facility: [facility]:[place] : 1955 Planned Disposition: Inpatient Rehab Anticipated Discharge Date: Discharge Date: Expected LOS: Initial Reviewer: [email or web address] Initial Review Date: 01/01/2020 Generated: 01/10/20 1:23 pm Comments DCP- Discharge Planning Updated by [email or web address]: Marii Decker on 01/10/20 11:[address] SPOKE TO PATIENT AND FAMILY ABOUT INPAITIENT REHAB, HE WOULD LIKE TO GO TO [facility] ANITA SIGNED AND IMM ALSO SIGNED AND EXPLAINED. I HAVE SENT THE REFERRAL TO [facility] AND SPOKE WITH KRISTIE DEL VALLE.. CM TO FOLLOW AND ASSIST NEEDED DCP- Discharge Planning Updated by [email or web address]: Marii Decker on 01/08/20 9:[address] Patient Name: MARIANA ARANGO Admission Status: ER Accout number: [id number] Admission Date: 01-01-2020 : 1955 Admission Diagnosis:CELLULITIS OF UNSPECIFIED PART OF LIMB Attending: SUSAN OCONNOR Current LOS: 7 Anticipated DC Date: Planned Disposition: Inpatient Rehab Primary Insurance: MEDICARE A & B Discharge Planning Comments: CM met with patient & his family to complete initial dc planning assessment. CM educated patient on the CM role and verbal consent given by patient to complete assessment. Patient lives at home by himself where he is independent with his care. At discharge patient plans to return home when he is able to and feels this is a safe discharge. CM discussed availability of home health, rehab services, and medical equipment. Prior to coming to the hospital he was independent with care. He used a cane at times and a glucometer. His cousin, Micaela stated that she would talk to his sister about the different in patient rehabs in [place] and get back with me. We talked about inpatient rehabs. ANITA signed for inpatient rehab. Patient states that he is NOT feeling any better at this time. He did appear to be hurting and did not look like he felt well. Patient denied known discharge needs at this time. CM will continue to follow and will assist as needed with dc plans/needs. Extraction Operator: Marii Decker DCPIA - Discharge Planning Initial Assessment Updated by [email or web address]: Marii Decker on 01/08/20 10:32 am * Is the patient Alert and Oriented? Yes * How many steps to enter\exit or inside your home? * PCP DR SAENZ * Pharmacy [facility] * Preadmission Environment Home Alone * ADLs Independent * Equipment Cane Glucometer * List name and contact numbers for known caregivers / representatives who currently or will assist patient after discharge: NELL CLINTON [phone] MICAELA MORALES (COUSIN) * Verbal permission to speak to the caregivers and representatives has been obtained from the patient. Yes * Community resources currently utilized None * Additional services required to return to the preadmission environment? Yes * Can the patient safely return to the preadmission environment? No * Has this patient been hospitalized within the prior 30 days at any hospital? No External Providers External Provider: [facility] Next Contact Date: Service Request Date: Service Type: Resolution: Reviewer: Comments: Coverage Notice Reviewer: [id number] Alison Decker Notice Issued Date-Time: 01/08/2020 10:05 Notice Type: Patient Choice Letter Notice Delivered To: Patient Relationship to Patient: Crm Marketing Specialist Name: Delivery Method: HAND - Hand Delivered Ragini Days: Prior Verbal Notification: Recipient Understood Notice: Yes Recipient Signature: Yes Med Rec Note Co-signed by Attending: Coverage Notice Comment: inpatient rehab unsure which one to use, he will let us know [facility] Reviewer: [id number] Alison Decker Notice Issued Date-Time: 01/10/2020 11:45 Notice Type: IM Discharge Notice Notice Delivered To: Patient Relationship to Patient: Crm Marketing Specialist Name: Delivery Method: HAND - Hand Delivered Ragini Days: Prior Verbal Notification: Recipient Understood Notice: Yes Recipient Signature: Yes Med Rec Note Co-signed by Attending: Coverage Notice Comment: IMM explained, signed, copy given and original placed in medical record Last DP export: 01/10/20 11:09 a Patient Name: MARIANA ARANGO Page [phone] at 1224 All edits/amendments must be made on the electronic document DICTATION DATE: 01/10/201223 LIQUOR GRINDING MILL OPERATOR: KAYLEIGH 01/10/204 RPT#: [id number] DC DATE: STATUS: ADM IN [facility] [address] [place] [address] END OF REPORT
--- NOTE | 2020-01-10 12:57 | NUR ---
OT NOTE: PERFORMED BED MOB WITH MIN ASSIST; AMB WITH PT INTO SHOWER WITH MIN ASSIST ADN WALKER; MOD ASSIST WITH TRANSFER TO SHOWER CHAIR. NURSING STUDENTS ASSISTED PT WITH BATHING BACK AND PERINEAL AREA..SPV WITH REMAINDER OF BATHING. EXTENSIVE ASSIST WITH SIT TO STAND FOLLOWING SHOWER. PT VERY FATIGUED. SOB WITH RETURN BACK TO BED. MOD ASSIST WITH SIT TO SUPINE. CONTINUE TO RECOMMEND IP REHAB. MARY ROSA, OTR/L [phone]
[2020-01-10 13:12] LABS: EHRLICHIA CHAFF IGG Negative (Neg:<1:64); EHRLICHIA CHAFF IGM Negative (Neg:<1:20); HGE IGG TITER Negative (Neg:<1:64); HGE IGM TITER Negative (Neg:<1:20)
[2020-01-10 16:23] VITALS: BP 149/68
[2020-01-10 20:00] VITALS: BP 161/74
--- NOTE | 2020-01-10 20:00 | NUR ---
PT SITTING UP IN BED WITHOUT DISTRESS, AOX4. WATCHING TV. RIGHT IJ INFUSING NS WITH 20K @ 100. HR 98 SR PER TELE. GENERALIZED SWELLING TO BILAT ARMS AND LEGS. REDNESS TO BILAT FEET. PT STATES HE HAS HAD A GOOD DAY AND IS FEELING BETTER. DENIES NEEDS AT THIS TIME. CL IN REACH, WILL CTM
--- NOTE | 2020-01-10 21:45 | NUR ---
FSBS 310, GAVE INSULIN PER SS AND LANTUS, SEE MAR. DENIES NEEDS AT THIS TIME. WILL CTM
[2020-01-11 04:00] VITALS: BP 145/76
[2020-01-11 04:32] LABS: BASOPHILS 0.1 % (0-2); EOSINOPHILS 0 % (0-7); HEMATOCRIT 32.7 % (42.0-54.0); HEMOGLOBIN 10.6 g/dL (13.5-17.5); IMMATURE GRANULOCYTES 0.8 % (0-5); LYMPHOCYTES 8.9 % (15-50); MCH 30.2 pg (26.0-34.0); MCHC 32.4 g/dL (31.0-37.0); MCV 93.2 fL (80.0-100.0); MEAN PLATELET VOLUME 9.3 fL (7.4-10.4); MONOCYTES 4.7 % (2-11); NEUTROPHILS 85.5 % (40-80); PLATELET COUNT 380 10x3/uL (130-400); RBC 3.51 10x6/uL (4.20-6.10); RDW 14.5 % (11.5-14.5)
[2020-01-11 04:57] LABS: ALBUMIN 1.4 g/dL (3.4-5.0); ALKALINE PHOSPHATASE 157 U/L (30-120); ALT (SGPT) 63 U/L (10-68); BILIRUBIN - TOTAL 0.97 mg/dL (0.2-1.3); CALCIUM 7.6 mg/dL (8.5-10.1); CARBON DIOXIDE 28.1 mmol/L (21.0-32.0); CHLORIDE - SERUM 103 mmol/L (98-107); POTASSIUM - SERUM 4.3 mmol/L (3.5-5.1); PROTEIN - SERUM 6.3 g/dL (6.4-8.2); SODIUM 135 mmol/L (136-145); UREA NITROGEN 19 mg/dL (7-18)
[2020-01-11 04:58] LABS: CALC OSMOLALITY 287 mosm/kg (275-300); CREATININE - SERUM 0.8 mg/dL (0.6-1.3); GLUCOSE 393 mg/dL (74-106)
[2020-01-11 04:59] LABS: eGFR NON AFRICAN AMERICAN > 90 mL/min (90-120)
[2020-01-11 09:22] VITALS: BP 152/70
[2020-01-11 13:19] VITALS: BP 163/86
--- NOTE | 2020-01-11 13:57 | NUR ---
OT NOTE: PT PERFORMED WELL TODAY. BED MOB WITH MIN ASSIST TO EOB ; IN ROOM AMBULATION WITH WALKER AND MIN ASSIST; AMB INTO HALLWAY APPROX 250 FT WITH 1 REST BREAK. TRANSFERRED TO CHAIR WITH MIN ASSIST. PT ONLY ABLE TO TOLERATED SITTING UP IN CHAIR X APPROX 30 MIN DUE TO PAIN TO BOTTOM. FOUND A CUSHION TO ADD FOR COMFORT. SIT TO STAND WITH MOD ASSIST AND USE OF WALKER; ASSISTED BACK TO SITTING AND RECLINED PTS CHAIR.. STATED THAT THIS WAS MUCH BETTER, HOWEVER, APPROX 40 MIN LATER, PT REQUESTING TO LIE BACK IN BED BECAUSE THE CHAIR WAS TOO UMCOMFORTABLE. ASSISTED BACK TO BED WITH MIN ASSIST. MARY ROSA, OTR/L [phone]
[2020-01-11 16:09] LABS: F. TULARENSIS - IGG Negative (Negative); F. TULARENSIS - IGM Negative (Negative); RMSF IGM 0.35 index (0.00-0.89)
[2020-01-11 17:42] VITALS: BP 171/83
[2020-01-11 20:00] VITALS: BP 166/80
--- NOTE | 2020-01-11 20:00 | NUR ---
PT SITTING UP IN BED WITHOUT DISTRESS, AOX4. SISTER AT BEDSIDE. RIGHT IJ INFUSING NS WITH 20K @ 100. REQUESTED SOMETHING TO HELP HIM SLEEP. CALLED [facility], RECIEVED ORDERS FOR RESTORIL. WILL GIVE ORDERED. DENIES OTHER NEEDS. CL IN REACH, WILL CTM
[2020-01-12 03:08] LABS: CYCLIC CITRULL PEPTIDE IGG/IGA 7 units (0-19)
[2020-01-12 04:00] VITALS: BP 163/80
[2020-01-12 06:22] LABS: BASOPHILS 0.1 % (0-2); EOSINOPHILS 0.4 % (0-7); HEMATOCRIT 32.3 % (42.0-54.0); HEMOGLOBIN 10.6 g/dL (13.5-17.5); IMMATURE GRANULOCYTES 0.6 % (0-5); LYMPHOCYTES 22.5 % (15-50); MCH 30.4 pg (26.0-34.0); MCHC 32.8 g/dL (31.0-37.0); MCV 92.6 fL (80.0-100.0); MEAN PLATELET VOLUME 9.2 fL (7.4-10.4); MONOCYTES 7.7 % (2-11); NEUTROPHILS 68.7 % (40-80); PLATELET COUNT 368 10x3/uL (130-400); RBC 3.49 10x6/uL (4.20-6.10); RDW 14.4 % (11.5-14.5); WBC 11.6 10x3/uL (4.8-10.8)
[2020-01-12 06:42] LABS: ALBUMIN 1.5 g/dL (3.4-5.0); ALKALINE PHOSPHATASE 133 U/L (30-120); ALT (SGPT) 63 U/L (10-68); BILIRUBIN - TOTAL 0.92 mg/dL (0.2-1.3); CALCIUM 7.8 mg/dL (8.5-10.1); CARBON DIOXIDE 31.3 mmol/L (21.0-32.0); CHLORIDE - SERUM 103 mmol/L (98-107); CREATININE - SERUM 0.8 mg/dL (0.6-1.3); PROTEIN - SERUM 6.1 g/dL (6.4-8.2); SODIUM 136 mmol/L (136-145); UREA NITROGEN 15 mg/dL (7-18); eGFR NON AFRICAN AMERICAN > 90 mL/min (90-120)
[2020-01-12 06:43] LABS: CALC OSMOLALITY 281 mosm/kg (275-300); GLUCOSE 264 mg/dL (74-106); POTASSIUM - SERUM 3.5 mmol/L (3.5-5.1)
--- NOTE | 2020-01-12 09:00 | NUR ---
ALERT AND ORIENTED X4. RIGHT IF INFUSING AT PRESCRIBED RATE. LUNGS CTA WITH GENERALIZED EDEMA NOTED TO BLE WITH ERRYTHEMA IMPROVED TO BLE. DENIES ANY PAIN OR DISCOMFORT. TELEMETRY INTACT AND DENIES ANY CHEST PAIN OR DISCOMFORT. ENCOURGED TO USE CALL LIGHT FOR ASSSIT.
[2020-01-12 09:29] VITALS: BP 151/73
--- NOTE | 2020-01-12 11:35 | MORECARE ---
CASE MANAGEMENT DISCHARGE SUMMARY PATIENT: MARIANA ARANGO UNIT: [id number] ADM DATE: 01/01/20 AGE: 64 : 53 SEX: M ROOM/BED: D.2218 AUTHOR: SELENEDOC PHYSICIAN: REFERRING PHYSICIAN: SUSAN MISTRY MD DATE OF SERVICE: 01/12/20 Discharge Plan Patient Name: MARIANA ARANGO Facility: [facility]:[place] : 1955 Planned Disposition: Inpatient Rehab Anticipated Discharge Date: Discharge Date: Expected LOS: Initial Reviewer: [email or web address] Initial Review Date: 01/01/2020 Generated: 01/12/20 12:35 pm Comments DCP- Discharge Planning Updated by [id number]: Marii Decker on 01/12/20 10:[address] patient has been accepted to [facility] rehab today DCP- Discharge Planning Updated by [email or web address]: Marii Decker on 01/10/20 11:[address] SPOKE TO PATIENT AND FAMILY ABOUT INPAITIENT REHAB, HE WOULD LIKE TO GO TO [facility], ANITA SIGNED AND IMM ALSO SIGNED AND EXPLAINED. I HAVE SENT THE REFERRAL TO [facility] AND SPOKE WITH KRISTIE THERE.. CM TO FOLLOW AND ASSIST NEEDED DCP- Discharge Planning Updated by [id number]: Marii Decker on 01/08/20 9:[address] Patient Name: MARIANA ARANGO Admission Status: ER Accout number: [id number] Admission Date: 01-01-2020 : 1955 Admission Diagnosis:CELLULITIS OF UNSPECIFIED PART OF LIMB Attending: SUSAN OCONNOR Current LOS: 7 Anticipated DC Date: Planned Disposition: Inpatient Rehab Primary Insurance: MEDICARE A & B Discharge Planning Comments: CM met with patient & his family to complete initial dc planning assessment. CM educated patient on the CM role and verbal consent given by patient to complete assessment. Patient lives at home by himself where he is independent with his care. At discharge patient plans to return home when he is able to and feels this is a safe discharge. CM discussed availability of home health, rehab services, and medical equipment. Prior to coming to the hospital he was independent with care. He used a cane at times and a glucometer. His cousin, Micaela stated that she would talk to his sister about the different in patient rehabs in [place] and get back with me. We talked about inpatient rehabs. ANITA signed for inpatient rehab. Patient states that he is NOT feeling any better at this time. He did appear to be hurting and did not look like he felt well. Patient denied known discharge needs at this time. CM will continue to follow and will assist as needed with dc plans/needs. Paid Search Specialist: Marii Decker DCPIA - Discharge Planning Initial Assessment Updated by [id number]: Marii Decker on 01/08/20 10:32 am * Is the patient Alert and Oriented? Yes * How many steps to enter\exit or inside your home? * PCP DR SAENZ * Pharmacy [facility] * Preadmission Environment Home Alone * ADLs Independent * Equipment Cane Glucometer * List name and contact numbers for known caregivers / representatives who currently or will assist patient after discharge: NELL ALTAMIRANOLEDAKENNETH [phone] MICAELA MORALES (COUSIN) * Verbal permission to speak to the caregivers and representatives has been obtained from the patient. Yes * Community resources currently utilized None * Additional services required to return to the preadmission environment? Yes * Can the patient safely return to the preadmission environment? No * Has this patient been hospitalized within the prior 30 days at any hospital? No Coverage Notice Reviewer: [id number] Alison Decker Notice Issued Date-Time: 01/08/2020 10:05 Notice Type: Patient Choice Letter Notice Delivered To: Patient Relationship to Patient: Pasteurizer Name: Delivery Method: HAND - Hand Delivered Ragini Days: Prior Verbal Notification: Recipient Understood Notice: Yes Recipient Signature: Yes Med Rec Note Co-signed by Attending: Coverage Notice Comment: inpatient rehab unsure which one to use, he will let us know [facility] Reviewer: [id number] Alison Decker Notice Issued Date-Time: 01/10/2020 11:45 Notice Type: IM Discharge Notice Notice Delivered To: Patient Relationship to Patient: Pasteurizer Name: Delivery Method: HAND - Hand Delivered Ragini Days: Prior Verbal Notification: Recipient Understood Notice: Yes Recipient Signature: Yes Med Rec Note Co-signed by Attending: Coverage Notice Comment: IMM explained, signed, copy given and original placed in medical record Last DP export: 01/10/20 11:24 a Patient Name: MARIANA ARANGO Page [id number] at 1135 All edits/amendments must be made on the electronic document DICTATION DATE: 01/12/201134 VOCATIONAL EXAMINER: KAYLEIGH 01/12/201134 RPT#: [id number] DC DATE: STATUS: ADM IN [facility] [address] [place] [address] END OF REPORT
[2020-01-12] MEDS ORDERED: NYSTATIN100000 UN4 PO (11:48)
[2020-01-12] MEDS ORDERED: Xopenex 0.63 MG INH UPD (11:48)
[2020-01-12] MEDS ORDERED: FLOMAX0.4 MG PO (11:48)
[2020-01-12] MEDS ORDERED: Vibramycin 100 MG/D5 IV (11:48)
[2020-01-12] MEDS ORDERED: RESTORIL15 MG PO (11:49)
[2020-01-12] MEDS ORDERED: LOPRESSOR25 MG PO (11:49)
[2020-01-12] MEDS ORDERED: MUCINEX600 MG PO (11:49)
[2020-01-12] MEDS ORDERED: TESSALON PERLE100 MG PO (11:49)
[2020-01-12] MEDS ORDERED: FLORAJEN3 CAPS460 MG PO (11:50)
[2020-01-12] MEDS ORDERED: SOLU-MEDRO40 MG/1 M1 IV (11:50)
[2020-01-12] MEDS ORDERED: MULTI-DAY VITAM1 TAB PO (11:50)
[2020-01-12] MEDS ORDERED: COLACE100 MG PO (11:50)
[2020-01-12] MEDS ORDERED: MIRALAX17 GM PO (11:50)
[2020-01-12] MEDS ORDERED: HUMALOG 30100 UNITS/ SC (11:51)
[2020-01-12] MEDS ORDERED: MELATONIN 3 MG1 TAB PO (11:51)
[2020-01-12] MEDS ORDERED: LANTUS INS100 UNITS/ SC (11:51)
--- NOTE | 2020-01-12 15:39 | NUR ---
REPORT CALLED TO DIANA ACOSTA AT [facility] REH[facility] ALONG WITH DISCHARGE INSTRUCTIONS TO PATINET AND FAMILY.
--- NOTE | 2020-01-12 18:08 | NUR ---
PATIENT LEFT UNDER CARE OF [facility] WITH REPORT GIVEN. STABLE AT TIME OF DEPARTURE WITH INSULIN GIVEN TO [facility] STAFF.
--- NOTE | 2020-01-15 08:53 | MORECARE ---
CASE MANAGEMENT DISCHARGE SUMMARY PATIENT: MARIAAN ARANGO UNIT: [id number] ADM DATE: 01/01/20 AGE: 64 : 53 SEX: M ROOM/BED: D.2218 AUTHOR: SHANNON MORTON PHYSICIAN: REFERRING PHYSICIAN: SUSAN MISTRY MD DATE OF SERVICE: 01/15/20 Discharge Plan Patient Name: MARIANA ARANGO Facility: [facility]:[place] : 1955 Planned Disposition: Inpatient Rehab Anticipated Discharge Date: Discharge Date: 01/12/2020 Expected LOS: Initial Reviewer: [id number] Initial Review Date: 01/01/2020 Generated: 01/15/20 9:52 am Comments DCP- Discharge Planning Updated by [email or web address]: Marii Decker on 01/12/20 10:[address] patient has been accepted to [facility] rehab today DCP- Discharge Planning Updated by [email or web address]: Marii Decker on 01/10/20 11:[address] SPOKE TO PATIENT AND FAMILY ABOUT INPAITIENT REHAB, HE WOULD LIKE TO GO TO [facility], ANITA SIGNED AND IMM ALSO SIGNED AND EXPLAINED. I HAVE SENT THE REFERRAL TO [facility] AND SPOKE WITH KRISTIE THERE.. CM TO FOLLOW AND ASSIST NEEDED DCP- Discharge Planning Updated by [email or web address]: Marii Decker on 01/08/20 9:[address] Patient Name: MARIANA ARANGO Admission Status: ER Accout number: [id number] Admission Date: 01-01-2020 : 1955 Admission Diagnosis:CELLULITIS OF UNSPECIFIED PART OF LIMB Attending: SUSAN OCONNOR Current LOS: 7 Anticipated DC Date: Planned Disposition: Inpatient Rehab Primary Insurance: MEDICARE A & B Discharge Planning Comments: CM met with patient & his family to complete initial dc planning assessment. CM educated patient on the CM role and verbal consent given by patient to complete assessment. Patient lives at home by himself where he is independent with his care. At discharge patient plans to return home when he is able to and feels this is a safe discharge. CM discussed availability of home health, rehab services, and medical equipment. Prior to coming to the hospital he was independent with care. He used a cane at times and a glucometer. His cousin, Micaela stated that she would talk to his sister about the different in patient rehabs in [place] and get back with me. We talked about inpatient rehabs. ANITA signed for inpatient rehab. Patient states that he is NOT feeling any better at this time. He did appear to be hurting and did not look like he felt well. Patient denied known discharge needs at this time. CM will continue to follow and will assist as needed with dc plans/needs. Plate Worker: Marii Decker DCPIA - Discharge Planning Initial Assessment Updated by [id number]: Marii Decker on 01/08/20 10:32 am * Is the patient Alert and Oriented? Yes * How many steps to enter\exit or inside your home? * PCP DR SAENZ * Pharmacy [facility] * Preadmission Environment Home Alone * ADLs Independent * Equipment Cane Glucometer * List name and contact numbers for known caregivers / representatives who currently or will assist patient after discharge: NELL ALTAMIRANOLEDAKENNETH [phone] MICAELA MORALES (COUSIN) * Verbal permission to speak to the caregivers and representatives has been obtained from the patient. Yes * Community resources currently utilized None * Additional services required to return to the preadmission environment? Yes * Can the patient safely return to the preadmission environment? No * Has this patient been hospitalized within the prior 30 days at any hospital? No Coverage Notice Reviewer: [email or web address] Alison Decker Notice Issued Date-Time: 01/08/2020 10:05 Notice Type: Patient Choice Letter Notice Delivered To: Patient Relationship to Patient: Approver Name: Delivery Method: HAND - Hand Delivered Raigni Days: Prior Verbal Notification: Recipient Understood Notice: Yes Recipient Signature: Yes Med Rec Note Co-signed by Attending: Coverage Notice Comment: inpatient rehab unsure which one to use, he will let us know [facility] Reviewer: [id number] Alison Decker Notice Issued Date-Time: 01/10/2020 11:45 Notice Type: IM Discharge Notice Notice Delivered To: Patient Relationship to Patient: Approver Name: Delivery Method: HAND - Hand Delivered Ragini Days: Prior Verbal Notification: Recipient Understood Notice: Yes Recipient Signature: Yes Med Rec Note Co-signed by Attending: Coverage Notice Comment: IMM explained, signed, copy given and original placed in medical record Last DP export: 01/12/20 10:35 a Patient Name: MARIANA ARANGO Page 48738 at 0853 All edits/amendments must be made on the electronic document DICTATION DATE: 01/15/20851 ASSISTANT LABORATORY DIRECTOR: KAYLEIGH 01/15/20851 RPT#: [id number] DC DATE:01/12/20 STATUS: DIS IN [facility] [address] [place] [address] END OF REPORT
== END 2020-01-12 18:11 | DRG 871 ==
LOC: D.ER 07:12 → D.M2 14:00 → D.MS 14:00 → D.M2 01-02 02:46 → D.MS 01-05 14:29
PROVIDERS: Emergency Medicine; Family Medicine; ADMIT Family Medicine Adult Medicine; ATTEND Family Medicine Adult Medicine
PROC: 05HM33Z Insertion of Infusion Device into Right Internal Jugular Vein, Percutaneous Approach (ICD-10-PCS; principal; 2020-01-04)
DX: A41.9 Sepsis, unspecified organism (principal); G93.41 Metabolic encephalopathy; E43 Unspecified severe protein-calorie malnutrition; L03.116 Cellulitis of left lower limb; G72.81 Critical illness myopathy; E87.1 Hypo-osmolality and hyponatremia; L03.115 Cellulitis of right lower limb; E11.628 Type 2 diabetes mellitus with other skin complications; E87.6 Hypokalemia; E86.0 Dehydration; E11.65 Type 2 diabetes mellitus with hyperglycemia; Z91.81 History of falling; F12.90 Cannabis use, unspecified, uncomplicated; Z68.31 Body mass index [BMI] 31.0-31.9, adult